=== PATIENT | male | born 1940 | race Caucasian/White ===

== ENCOUNTER 2018-04-10 22:53 | Emergency (ER) | payer BC, MEDICAID ==
[~2018-04-10] VITALS: Ht 175.3 cm; Wt 79.4 kg
--- NOTE | 2018-04-10 23:19 | NUR ---
ELAINA SALAZAR at bedside for patient evaluation.
[2018-04-10 23:41] LABS: BASOPHILS # (AUTO) 0.1 K/uL (0.0-8.0); BASOPHILS % (AUTO) 0.5 % (0.0-2.0); EOSINOPHILS # (AUTO) 0.1 K/uL (0.0-0.7); EOSINOPHILS % (AUTO) 1.3 % (0.0-7.0); HEMATOCRIT 40.3 % (36.7-47.1); HEMOGLOBIN 13.9 g/dL (12.5-16.3); LYMPHOCYTES # (AUTO) 1.8 K/uL (20.0-40.0); LYMPHOCYTES % (AUTO) 17.4 % (20.5-51.5); MEAN CORPUSCULAR HEMOGLOBIN 29.9 uug (23.8-33.4); MEAN CORPUSCULAR HGB CONC 35 g/dL (32.5-36.3); MEAN CORPUSCULAR VOLUME 86.4 fL (73.0-96.2); MONOCYTES # (AUTO) 0.4 K/uL (2.0-10.0); NEUTROPHILS % (AUTO) 76.8 % (38.5-71.5); PLATELET COUNT (AUTO) 208 K/uL (152-348); RED BLOOD CELL COUNT(AUTO) 4.66 MIL/uL (4.06-5.63); WHITE BLOOD COUNT (AUTO) 10.4 K/uL (3.6-10.2)
--- NOTE | 2018-04-10 23:46 | NUR ---
Patient remains in bed, no acute distress noted. VSS
[2018-04-10 23:49] LABS: CARBON DIOXIDE 26 mmol/L (21-32); CHLORIDE 104 mmol/L (98-107); CREATININE 1.4 mg/dL (0.6-1.3); GLUCOSE 155 mg/dL (74-106); UREA NITROGEN, BLOOD 16 mg/dL (7-18)
[2018-04-10 23:55] LABS: ALANINE AMINOTRANSFERASE 24 U/L (16-63); ALKALINE PHOSPHATASE 62 U/L (50-136); ASPARTATE AMINOTRANSFERASE 13 U/L (15-37); BILIRUBIN,DIRECT 0.1 mg/dL (0.0-0.2); BILIRUBIN,TOTAL 0.4 mg/dL (0.2-1.0); TOTAL PROTEIN, SERUM 8.2 g/dL (6.4-8.2)
[2018-04-11 00:34] LABS: *BILIRUBIN,URIN NEGATIVE (NEGATIVE); *BLOOD, URINE Trace-intact (NEGATIVE); *CLARITY,URINE CLEAR (CLEAR); *COLOR,URINE YELLOW (YELLOW); *KETONES,URINE NEGATIVE (NEGATIVE); *PROTEIN,URINE NEGATIVE (NEGATIVE); *UROBILINOGEN,URINE 0.2 E.U./dl (NORMAL); LEUKOCYTE ESTERASE ,URINE NEGATIVE (NEGATIVE); NITRITE, URINE NEGATIVE (NEGATIVE); PH,URINE 7.5 (5.0-8.0); UGLUCOSE NEGATIVE (NEGATIVE)
[2018-04-11 00:43] LABS: BACTERIA,URINE NONE SEEN /HPF (NONE SEEN); RBC,URINE 0-3 /HPF (0-3); SQUAMOUS EPITHELIAL CELL,UR NONE SEEN /HPF (NONE SEEN); WBC,URINE 0-3 /HPF (0-3)
--- NOTE | 2018-04-11 01:28 | NUR ---
Patient discharged to home in stable conditon. Written and verbal after care instructions given. Patient verbalizes understanding of instructions. Ambulated from ER with stable gait. All belongings with patient. VSS
[2018-04-11 01:30] VITALS: BP 141/87
== END 2018-04-11 01:31 | disposition home or self-care (01) ==
LOC: ER 22:53
DX: H81.10 Benign paroxysmal vertigo, unspecified ear (principal); I10 Essential (primary) hypertension
CPT/HCPCS: 36415; 70030-TC; 70450; 71045; 85025; 85730; 93005; A4663

== ENCOUNTER 2018-11-06 18:19 | Emergency (ER) | payer BC ==
[~2018-11-06] VITALS: Ht 180.3 cm; Wt 78.0 kg
--- NOTE | 2018-11-06 18:32 | NUR ---
ELAINA SALAZAR AT BEDSIDE FOR MSE.
--- NOTE | 2018-11-06 19:00 | NUR ---
SHIFT REPORT GIVEN TO FRANTZ Granados RN.
[2018-11-06 19:02] LABS: BASOPHILS # (AUTO) 0.1 K/uL (0.0-8.0); BASOPHILS % (AUTO) 1.1 % (0.0-2.0); EOSINOPHILS # (AUTO) 0.2 K/uL (0.0-0.7); EOSINOPHILS % (AUTO) 3.7 % (0.0-7.0); HEMATOCRIT 41.2 % (36.7-47.1); HEMOGLOBIN 13.7 g/dL (12.5-16.3); LYMPHOCYTES % (AUTO) 33.9 % (20.5-51.5); MEAN CORPUSCULAR HEMOGLOBIN 28.2 uug (23.8-33.4); MEAN CORPUSCULAR HGB CONC 33 g/dL (32.5-36.3); MEAN CORPUSCULAR VOLUME 85.1 fL (73.0-96.2); MONOCYTES # (AUTO) 0.5 K/uL (2.0-10.0); MONOCYTES % (AUTO) 7.9 % (0.0-11.0); NEUTROPHILS # (AUTO) 3.2 K/uL (1.8-8.9); NEUTROPHILS % (AUTO) 53.4 % (38.5-71.5); PLATELET COUNT (AUTO) 193 K/uL (152-348); RED BLOOD CELL COUNT(AUTO) 4.84 MIL/uL (4.06-5.63)
[2018-11-06 19:02] LABS: *BILIRUBIN,URIN NEGATIVE (NEGATIVE); *BLOOD, URINE 3+ (NEGATIVE); *CLARITY,URINE CLEAR (CLEAR); *COLOR,URINE YELLOW (YELLOW); *KETONES,URINE NEGATIVE (NEGATIVE); *UROBILINOGEN,URINE 0.2 E.U./dl (NORMAL); LEUKOCYTE ESTERASE ,URINE NEGATIVE (NEGATIVE); NITRITE, URINE NEGATIVE (NEGATIVE); PH,URINE 5.5 (5.0-8.0); UGLUCOSE NEGATIVE (NEGATIVE)
[2018-11-06 19:03] LABS: CARBON DIOXIDE 25 mmol/L (21-32); CHLORIDE 107 mmol/L (98-107); CREATININE 1.5 mg/dL (0.6-1.3); GLUCOSE 105 mg/dL (74-106); POTASSIUM 4.2 mmol/L (3.5-5.1); UREA NITROGEN, BLOOD 17 mg/dL (7-18)
--- NOTE | 2018-11-06 19:08 | NUR ---
Assumed care of pt at this time. Pt back from CT scan. Ultrasound at bedside.
[2018-11-06 19:09] LABS: ALANINE AMINOTRANSFERASE 23 U/L (16-63); ALKALINE PHOSPHATASE 58 U/L (50-136); ASPARTATE AMINOTRANSFERASE 10 U/L (15-37); BILIRUBIN,DIRECT 0.1 mg/dL (0.0-0.2); BILIRUBIN,TOTAL 0.6 mg/dL (0.2-1.0); LIPASE 218 U/L (73-393); TOTAL PROTEIN, SERUM 7.7 g/dL (6.4-8.2)
[2018-11-06 19:11] LABS: RBC,URINE 50-80 /HPF (0-3); WBC,URINE 0-3 /HPF (0-3)
[2018-11-06 19:12] LABS: BACTERIA,URINE FEW /HPF (NONE SEEN); SQUAMOUS EPITHELIAL CELL,UR FEW /HPF (NONE SEEN)
--- NOTE | 2018-11-06 19:57 | NUR ---
IV removed. Catheter intact and site benign. Pressure and 4x4 gauze applied to site. No bleeding noted.
--- NOTE | 2018-11-06 19:58 | NUR ---
Note lo in ED - 11/06/18 at 1959 by YONATAN hIV removed. Catheter intact and site benign. Pressure and 4x4 gauze applied to site. No bleeding noted.
--- NOTE | 2018-11-06 19:59 | NUR ---
Patient discharged to home in stable conditon. Written and verbal after care instructions given. Patient verbalizes understanding of instructions.
[2018-11-06 20:00] VITALS: BP 158/87
== END 2018-11-06 20:02 | disposition home or self-care (01) ==
LOC: ER 18:26
DX: N13.2 Hydronephrosis with renal and ureteral calculous obstruction (principal); E03.9 Hypothyroidism, unspecified; I10 Essential (primary) hypertension
CPT/HCPCS: 36415; 70030-TC; 71045; 83690; 85025; 85730; 93005; A4663

== ENCOUNTER 2021-07-06 12:37 | Emergency (ER) | payer BC ==
[~2021-07-06] VITALS: Ht 175.3 cm; Wt 77.1 kg
--- NOTE | 2021-07-06 12:47 | NUR ---
PT IS IN ROOM #1B. DR QUINN EVALUATED THE PT.
[2021-07-06] MEDS ORDERED: COLCHICINE 0.6 MG TABLET ONE (12:53)
[2021-07-06] MEDS ORDERED: IBUPROFEN 600 MG TABLET ONE (12:53)
[2021-07-06] MEDS ORDERED: predniSONE 20 MG TABLET ONE (12:54)
[2021-07-06] MEDS ORDERED: IBUP-1955 PO (12:55)
[2021-07-06] MEDS ORDERED: PRED20TA PO (12:55)
[2021-07-06] MEDS ORDERED: COLC0.6C3 PO (12:55)
[2021-07-06] MEDS ORDERED: IBUPROFEN 600 MG TABLET PO ONE (13:00)
[2021-07-06] MEDS ORDERED: predniSONE 20 MG TABLET PO ONE (13:00)
[2021-07-06] MEDS ORDERED: COLCHICINE 0.6 MG TABLET PO ONE (13:00)
--- NOTE | 2021-07-06 14:02 | NUR ---
PT WAS D/C'd TO HOME. D/C INSTRUCTIONS GIVEN TO THE PT BY DR QUINN.
[2021-07-06 14:03] VITALS: BP 139/88
== END 2021-07-06 14:03 | disposition home or self-care (01) ==
LOC: ER 12:37
DX: M10.9 Gout, unspecified (principal); I10 Essential (primary) hypertension; E03.9 Hypothyroidism, unspecified
CPT/HCPCS: 36415; 73630; 84550; 99284; J7512; A4663